=== PATIENT | female | born 1995 | race Caucasian/White ===

== ENCOUNTER 2016-06-06 21:50 | Emergency (ER) | payer OTHER ==
[2016-06-06 22:01] VITALS: BP 136/87
--- NOTE | 2016-06-06 22:26 | ED HEAD/FACIAL INJ COMPLAINT ---
History of Present Illness General Chief Complaint: Ear Complaints Stated Complaint: PT HAD A DOG BITE HER LEFT EAR Source: patient Exam Limitations: no limitations Vital Signs & Intake/Output Vital Signs & Intake/Output Vital Signs Date Time Temp Pulse Resp B/P Pulse O2 O2 Flow FiO2 Ox Delivery Rate 06/07 0056 70 20 99 06/06 2230 99 Room Air 06/06 2201 97.0 116 22 136/87 98 ED Intake and Output 06/07 0000 06/06 1200 Intake Total 0 Output Total Balance 0 Intake, Oral 0 Allergies Coded Allergies: No Known Allergies (06/06/16) Reconcile Medications Amoxicillin/Potassium Clav (Augmentin 875-125 Tablet) 875 MG-125 MG TABLET 1 TAB PO BID infection prevention Aripiprazole (Abilify) 5 MG TABLET 1 TAB PO DAILY bipolar Ibuprofen 600 MG TABLET 1 TAB PO TID PRN pain with food Sertraline HCl 50 MG TABLET 1 TAB PO DAILY depression Triage Note: PER PT BIT IN L EAR BY DOG PT STATES DOG UTD WITH SHOTS. Triage Nurses Notes Reviewed? yes Onset: Abrupt Severity: mild, moderate : No Patient currently breastfeeds: No HPI: 21 yowoman presents after being bitten in the left ear by her friend's pit bull (who is up to date on his shots). Past History Travel History Traveled to [place] past 21 day No Medical History Any Pertinent Medical History? see below for history Neurological: NONE EENT: NONE Cardiovascular: NONE Respiratory: NONE Gastrointestinal: NONE Hepatic: NONE Renal: NONE Musculoskeletal: NONE Psychiatric: NONE Endocrine: NONE Surgical History Surgical History: none Psychosocial History What is your primary language Tunisian Tobacco Use: Never used Family History Hx Contributory? No Review of Systems Review of Systems Constitutional: Reports: no symptoms. EENTM: Reports: no symptoms. Respiratory: Reports: no symptoms. Cardiovascular: Reports: no symptoms. GI: Reports: no symptoms. Genitourinary: Reports: no symptoms. Musculoskeletal: Reports: no symptoms. Skin: Reports: no symptoms. Neurological/Psychological: Reports: no symptoms. Hematologic/Endocrine: Reports: no symptoms. Immunologic/Allergic: Reports: no symptoms. All Other Systems: Reviewed and Negative Physical Exam Physical Exam General Appearance: well developed/nourished, mild distress Eyes: Bilateral: PERRL, EOMI. Ears, Nose, Throat: normal pharynx, hearing grossly normal, left ear with irregular laceration extending behind left ear, no siginificant deformity. no sign of infection Neck: normal inspection, supple Respiratory: normal breath sounds Cardiovascular: regular rate/rhythm Gastrointestinal: soft, non-tender Back: normal inspection Extremities: normal inspection, normal range of motion, no edema Psychiatric: awake, alert, oriented x 3 Cranial Nerves: normal hearing, normal speech, PERRL Skin: intact, normal color, warm/dry Lymphatic: no anterior cervical tasia Progress Differential Diagnosis: bite vs laceration Plan of Care: laceration repaired (see note below)... gave rx for augmentin for prophylaxis... close follow up advised. Departure Departure Disposition: HOME OR SELF CARE Condition: Stable Clinical Impression Primary Impression: Dog bite Secondary Impressions: Laceration of ear Referrals: PATIENT HAS NO PRIMARY CARE DR (PCP/Family) Departure Forms: Customer Survey General Discharge Information Prescriptions: Current Visit Scripts Amoxicillin/Potassium Clav (Augmentin 875-125 Tablet) 1 TAB PO BID #20 TAB Ibuprofen 1 TAB PO TID PRN pain #30 TAB with food Sertraline HCl 1 TAB PO DAILY #3 TAB Aripiprazole (Abilify) 1 TAB PO DAILY #3 TAB Procedures Laceration/Wound Repair Laceration/Wound Repair: Wound Location: face, left ear Wound's Depth, Shape: irregular, linear Wound Length (cm): 3 Wound Explored: clean, no foreign body removed Irrigated w/ Saline (ccs): 100 Betadine Prep? Yes Anesthesia: 1% lidocaine Volume Anesthetic (ccs): 5 Wound Repaired With: sutures Suture Size/Type: 4:0, nylon Number of Sutures: 4 Date of Last Tetanus: 06/07/16 Tetanus Status: up to date Progress: excellent result
[2016-06-06] MEDS ORDERED: AUGMENTIN 875-1 EACH PO (22:31)
[2016-06-06] MEDS ORDERED: IBUPROFEN600 M1 PO (22:31)
[2016-06-07] MEDS ORDERED: ABILIFY5 M1 PO (00:50)
[2016-06-07] MEDS ORDERED: SERTRALINE HCL50 MG PO (00:50)
== END 2016-06-07 00:58 ==
LOC: ERH 21:50
DX: S01.312A Laceration without foreign body of left ear, initial encounter (principal); W54.0XXA Bitten by dog, initial encounter
CPT/HCPCS: 90471; 90714; J3490